=== PATIENT | female | born 1980 | race Caucasian/White ===

== ENCOUNTER 2024-04-02 09:35 | Day surgery (SDC) | payer OTHER ==
[~2024-04-02] VITALS: Ht 157.5 cm; Wt 70.3 kg
[2024-04-02] MEDS ORDERED: MIDAZOLAM 2 MG/2 ML VIAL ONE (10:57)
[2024-04-02] MEDS ORDERED: fentaNYL citrate 0.05 MG/ML VIAL ONE (10:57)
[2024-04-02] MEDS: fentaNYL citrate 0.05 MG/ML VIAL IVP ONE (11:02)
[2024-04-02] MEDS: LIDOCAINE 2% 100 MG/5 ML UJET TP ONE (11:05)
== END 2024-04-02 12:10 | disposition home or self-care (01) ==
LOC: MDS 09:35 → MMU 09:37 → MDS 12:10
PROVIDERS: ATTEND Internal Medicine Gastroenterology
DX: K62.5 Hemorrhage of anus and rectum (principal); K63.5 Polyp of colon; F17.210 Nicotine dependence, cigarettes, uncomplicated
CPT/HCPCS: 45385; J3010; J2250